=== PATIENT | male | born 1945 | race Caucasian/White ===

== ENCOUNTER → 2024-09-12 | Outpatient (CLI) | payer MEDICARE, OTHER ==
[~2024-09-12] MED LIST: DIAZ5 PO; METO50 PO
[2024-09-14 15:44] LABS: HEPATITIS B SURFACE ANTIBODY 57.89 IU/L
[2024-09-14 16:02] LABS: HEPATITIS B SURFACE ANTIGEN Negative (Negative)
[2024-09-15 17:37] LABS: HIV 1,2 COMBO ANTIGEN/ANTIBODY Negative (Negative)
[2024-09-16 07:30] LABS: HCV QNT BY NAAT (IU/ML) Not Detected; HCV QNT BY NAAT (LOG IU/ML) Not Detected; HCV QNT BY NAAT INTERP Not Detected (Not Detected)
== END ==
LOC: LAB SHORT 16:05 → LAB 16:05
PROVIDERS: Family Medicine
DX: Z20.9 Contact with and (suspected) exposure to unspecified communicable disease (principal)
CPT/HCPCS: 84460; 87340; 87389; 87522